=== PATIENT | female | born 1935 | race Caucasian/White ===

== ENCOUNTER 2018-05-17 14:30 | Emergency (ER) | payer MEDICARE, BC ==
[2018-05-17 15:44] LABS: #Basophils 0.1 thou/uL (0.0-0.2); #Eosinphils 0.3 thou/uL (0.0-0.7); #Lymphocytes 1.3 thou/uL (1.20-3.40); #Neutrophils 6.4 thou/uL (1.40-6.50); %Basophils 0.6 % (0.0-1.0); %Eosinophils 3.3 % (0.0-10.0); %Lymphocytes 14.7 % (21.0-51.0); %Monocytes 11.2 % (0.0-10.0); %Neutrophils 70.1 % (42.0-75.0); Hemoglobin 12.1 g/dL (12.0-16.0); Mean Corpuscular HGB CONC 33.2 g/dL (32.0-36.0); Mean Corpuscular Hemoglobin 31.5 pg (27.0-31.0); Mean Platelet Volume 7.4 fL (7.4-10.4); Platelet Count 230 thou/uL (130-400); Red Blood Cell (RBC) Count 3.83 mill/uL (4.20-5.40); White Blood Cell (WBC) Count 9.1 thou/uL (4.8-10.8)
[2018-05-17 16:00] LABS: ALT (SGPT) 8 U/L (8-55); AST (SGOT) 14 U/L (5-34); Albumin 3.8 g/dL (3.4-4.8); Alkaline Phosphatase 76 U/L (40-150); Anion Gap 15 mmol/L (10-20); BUN (Urea Nitrogen) 27 mg/dL (9.8-20.1); Bilirubin, Total 0.2 mg/dL (0.2-1.2); Calc. Creatinine Clearance 0 mL/min (70-130); Calcium 9.2 mg/dL (7.8-10.44); Carbon Dioxide 25 mmol/L (23-31); Chloride 100 mmol/L (98-107); Estimated GFR-MDRD 43; Globulin 2.8 g/dL (2.4-3.5); Glucose 168 mg/dL (83-110); Potassium 4.9 mmol/L (3.5-5.1); Protein, Total 6.6 g/dL (6.0-8.3); Sodium 135 mmol/L (136-145)
--- NOTE | 2018-05-17 17:19 | CT ---
CT HEAD NONCONTRAST: 05/17/2018 HISTORY: Syncope. COMPARISON: None available. FINDINGS: There is diminished attenuation of the periventricular white matter, which is nonspecific but likely attributable to chronic small vessel ischemic changes. There is a linear area of diminished attenuat ion seen within the left basal ganglia, compatible with a lacunar infarction, of indeterminate age, b ut likely more remote in origin. There is no evidence of an acute cortical infarction, hemorrhage, m ass effect, or midline shift. Diffuse cerebral volume loss is present. The ventricular system is no rmal in size, shape, and position for the degree of sulcal atrophy. Vascular calcifications are seen in the carotid siphons and involving the distal vertebral arteries. The visualized paranasal sinuses and mastoid air cells are clear. The calvarial structures appear intact. IMPRESSION: 1. No acute intracranial abnormalities demonstrated. 2. Lacunar infarction, left basal ganglia, of which the exact age is indeterminate, but this is prob ably more remote in origin. 3. Chronic small vessel ischemic changes and cerebral volume loss. POS: EVAN
[2018-05-17 18:07] LABS: Bilirubin Negative (Negative); Blood, Urine Negative (Negative); Clarity CLEAR (Clear); Glucose, Urine (Dipstick) Negative (Negative); Leukocyte Negative (Negative); Nitrite Negative (Negative); Protein, Urine (Dipstick) Negative (Neg-Trace); Urobilinogen 0.2 mg/dL (0.2-1.0); pH, Urine 5.5 (5.0-9.0)
== END 2018-05-17 19:30 | disposition home or self-care (01) ==
LOC: ERS 14:30
DX: R42 Dizziness and giddiness (principal); Z86.73 Personal history of transient ischemic attack (TIA), and cerebral infarction without residual deficits; E11.9 Type 2 diabetes mellitus without complications; I10 Essential (primary) hypertension; F32.9 Major depressive disorder, single episode, unspecified
CPT/HCPCS: 36415; 51701; 70450; 80053; 81003; 84484; 85025; 93005; 96360; A4353

== ENCOUNTER 2018-11-15 21:38 | Inpatient (IN) | payer MEDICARE, BC ==
--- NOTE | 2018-11-15 22:05 | CT ---
EXAM: CT brain without contrast HISTORY: Found down with blood surrounding had an injury to the right eye; minimally responsive COMPARISON: 05/17/2018 TECHNIQUE: Multiple contiguous axial images were obtained and a CT of the brain without contrast. FINDINGS: There are scattered hypodensities in the subcortical and periventricular white matter consi stent with small vessel ischemic disease. Scattered foci of hemorrhage are seen in the bilateral frontal lobes, bilateral parietal lobes, and left occipital lobe. A small amount of right intraventri cular hemorrhage is seen. No hydrocephalus is seen. A tiny left frontal parietal amount of extra-axial blood is seen. The calvarium and overlying soft tissues are unremarkable. The visualized paranasal sinuses and masto id air cells are well aerated. IMPRESSION: Scattered parenchymal contusions, small left subdural hematoma, and intraventricular hemo rrnellige Dr. Melissa notified of the findings at 10:01 PM on 11/15/2018
--- NOTE | 2018-11-15 22:08 | CT ---
EXAM: CT face without contrast HISTORY: Facial trauma. Patient was found down in a corner with altered mental status. COMPARISON: None TECHNIQUE: Multiple contiguous axial images were obtained and a CT of the face without contrast. Sagi ttal and coronal reformats were performed. FINDINGS: No facial fractures are identified. Moderate right periorbital facial soft tissue swelling is seen. The globes and retrobulbar soft tissues are unremarkable. Fluid is seen in the right maxillary sinus. The other visualized paranasal sinuses are well aerated w ithout evidence of opacification. The mastoid air cells are well aerated. Visualized intracranial structures are unremarkable. IMPRESSION: No evidence of facial fracture Dr. Melissa notified of the findings at 10:05 PM on 11/15/2018
--- NOTE | 2018-11-15 22:10 | CT ---
EXAM: CT of the cervical spine without contrast HISTORY: Found down in a corner with altered mental status COMPARISON: None TECHNIQUE: Multiple contiguous axial images were obtained in a CT of the cervical spine without contr ast. Sagittal and coronal reformats were performed. FINDINGS: The vertebral bodies demonstrate normal height and alignment without fracture or subluxatio n. No prevertebral soft tissue swelling is seen. Moderate degenerative changes are present. The posterior facets are well aligned. Normal alignment of the skull base with the cervical spine is seen. The lung apices and cervical soft tissues are unremarkable. IMPRESSION: No evidence of acute osseous abnormality of the cervical spine. Dr. Melissa notified of findings at 10:06 PM on 11/15/2018.
[2018-11-15 22:32] LABS: #Eosinphils 0.1 thou/uL (0.0-0.7); #Lymphocytes 1.3 thou/uL (1.20-3.40); #Monocytes 1.6 thou/uL (0.11-0.59); #Neutrophils 15.9 thou/uL (1.40-6.50); %Basophils 0.1 % (0.0-1.0); %Eosinophils 0.5 % (0.0-10.0); %Lymphocytes 6.8 % (21.0-51.0); %Monocytes 8.5 % (0.0-10.0); %Neutrophils 84.2 % (42.0-75.0); Hemoglobin 13.7 g/dL (12.0-16.0); Mean Corpuscular HGB CONC 32.9 g/dL (32.0-36.0); Mean Corpuscular Hemoglobin 31.4 pg (27.0-31.0); Mean Corpuscular Volume 95.4 fL (78.0-98.0); Platelet Count 215 thou/uL (130-400); RBC Distribution Width 12.6 % (11.5-14.5); Red Blood Cell (RBC) Count 4.37 mill/uL (4.20-5.40); White Blood Cell (WBC) Count 18.9 thou/uL (4.8-10.8)
[2018-11-15 22:35] LABS: INR-International Normal Ratio 1.1; PTT 25.9 SEC (22.9-36.1)
[2018-11-15 22:52] LABS: ALT (SGPT) 17 U/L (8-55); AST (SGOT) 18 U/L (5-34); Albumin 4.3 g/dL (3.4-4.8); Alkaline Phosphatase 108 U/L (40-150); Anion Gap 17 mmol/L (10-20); BUN (Urea Nitrogen) 18 mg/dL (9.8-20.1); Bilirubin, Total 0.5 mg/dL (0.2-1.2); Calc. Creatinine Clearance 0 mL/min (70-130); Calcium 8.8 mg/dL (7.8-10.44); Carbon Dioxide 23 mmol/L (23-31); Chloride 100 mmol/L (98-107); Estimated GFR-MDRD 65; Globulin 2.5 g/dL (2.4-3.5); Glucose 140 mg/dL (83-110); Potassium 3.5 mmol/L (3.5-5.1); Protein, Total 6.8 g/dL (6.0-8.3); Sodium 136 mmol/L (136-145)
[2018-11-15] MEDS ORDERED: Acetaminophen 1,000 MG in Premix Bag 1 BAG IVPB SCH (23:45)
[2018-11-16] MEDS ORDERED: Ondansetron PF 4 MG/2 ML Vial ONE
[2018-11-16] MEDS ORDERED: Ondansetron ODT 4 MG TAB PO PRN (02:31)
[2018-11-16] MEDS ORDERED: Ondansetron PF 4 MG/2 ML Vial IVP PRN (02:31)
[2018-11-16] MEDS ORDERED: Dextrose 50% Abboject 50 ML SYRINGE SLOW IVP PRN ×2 (02:31)
[2018-11-16] MEDS ORDERED: Acetaminophen 1,000 MG in Premix Bag 1 BAG IVPB PRN (02:31)
[2018-11-16] MEDS ORDERED: Insulin Regular 300 UNITS/3 ML VIAL SC PRN (02:31)
[2018-11-16] MEDS ORDERED: Dextrose 5% in Water 1,000 ML IV PRN (02:31)
[2018-11-16 02:35] VITALS: BMI 19.8
[2018-11-16] MEDS: Sodium Chloride 0.9% 1,000 ML IV SCH ×3 (03:04→22:20)
[2018-11-16 03:13] LABS: Bilirubin Negative (Negative); Blood, Urine Negative (Negative); Clarity CLEAR (Clear); Glucose, Urine (Dipstick) 250 mg/dL (Negative); Leukocyte Negative (Negative); Nitrite Negative (Negative); Protein, Urine (Dipstick) Negative (Neg-Trace); Urobilinogen 0.2 mg/dL (0.2-1.0)
[2018-11-16] MEDS ORDERED: Amiodarone 150 MG, Admixture Fee 1 EACH in Dextrose 5% in Water 100 ML IVPB SCH (03:15)
[2018-11-16 03:16] LABS: Bacteria/HPF None Seen HPF (None Seen); Hyaline Casts/LPF 0-3 HYALINE CAST LPF (0-3 Hyaline); Squamous Epithelial None Seen HPF (0-3); WBC/HPF None Seen HPF (0-3)
[2018-11-16] MEDS: Amiodarone 450 MG, Admixture Fee 1 EACH in Dextrose 5% in Water 250 ML IVPB SCH ×2 (03:33→12:33)
--- NOTE | 2018-11-16 05:13 | HP ---
REQUESTING PHYSICIAN: Dr. Melissa. ATTENDING SURGEON: Dr. Umanzor. HISTORY OF PRESENT ILLNESS: The patient is an 83-year-old woman who resides in an [facility] Facility, who was found in her room lying on the floor with a bruise to her right eye and a small laceration. The patient was brought to the emergency department. En route, the patient was noted to have a [place] Coma Scale of 9. There was no documentation as to how this number was arrived at. Reportedly had a change in mentation as far as following commands while en route. The patient was last seen several hours early "normal." The patient was brought to the emergency department where she underwent evaluation and examination and was noted to have scattered parenchymal contusions and small left subdural hematoma and intraventricular hemorrhage. At which time, we were asked to evaluate the patient for admission and obtain neurosurgical consultations. Information is gathered from vague EMS report and medical records that were sent with the patient. ALLERGIES: ATORVASTATIN, LORAZEPAM, PREDNISONE, TRAMADOL, TRAZODONE. CURRENT MEDICATIONS: 1. [place] Thyroid. 2. Aspirin. 3. Celebrex. 4. Citalopram. 5. Diphenoxylate-atropine. 6. Keflex. 7. Lidocaine patch. PAST MEDICAL HISTORY: CVA, TIA, dementia, irritable bowel syndrome, diabetes, hypertension, and depression. PAST SURGICAL HISTORY: None reported. SOCIAL HISTORY: The patient lives in an Alzheimer Facility. There is no reported history of drug, alcohol, or tobacco use. REVIEW OF SYSTEMS: A 10-point review of systems is negative as otherwise stated. PHYSICAL EXAMINATION: VITAL SIGNS: Blood pressure 158/78, heart rate 114, respirations 21, oxygen saturation 94% on room air. GENERAL: The patient is lying in the ER bed. She appears to be awake. The patient's [place] Coma Scale is E 4, V 2, M 5; score is 11. HEENT: Head is normocephalic and atraumatic. Eyes, right eye has moderate amount of periorbital and eyelid ecchymosis. There is a small superficial laceration noted above the right eye. Pupils appear reactive, however the patient will not follow commands to check extraocular motion. Nose is atraumatic without discharge. Ears are atraumatic without discharge. Oropharynx clear. NECK: Immobilized in a pre-hospital C-collar and this will be exchanged for an [place] collar. Trachea is midline. No JVD. CHEST: Clear to auscultation with moderate inspiration and expiration. Again, the patient is not able to follow commands for a deep breath. HEART: Regular rhythm at a tachy rate. ABDOMEN: Soft, flat, nontender. PELVIS: Stable. EXTREMITIES: There is a small contusion on the right elbow. Otherwise, the patient is moving all 4 extremities. Capillary refill less than 3 seconds. Pulses are 2+ in all 4 extremities. BACK: By report is atraumatic and nontender. LABORATORY FINDINGS: White blood cell count 18.9, hemoglobin 13.7, hematocrit 41.7, platelets 215. Sodium 136, potassium 3.5, chloride 100, CO2 of 23, BUN 18, creatinine 0.83, glucose 140. LFTs are unremarkable. Lactic acid 1.6. PT 14, INR 1.1, PTT 26. RADIOGRAPHIC REPORTS: CT of the brain without contrast shows scattered parenchymal contusions, small left subdural hematoma, and intraventricular hemorrhage. CT of the facial bones without contrast shows no evidence of facial fracture. CT of the C-spine without contrast shows no evidence of acute osseous abnormality of the cervical spine. ASSESSMENT: 1. Status post unwitnessed fall. 2. Scattered parenchymal subdural hematoma. 3. Contusion and periorbital ecchymoses to right eye. 4. History of cerebrovascular accident and transient ischemic attacks. PLAN: Plan will be to admit the patient to the [facility] for serial exams and repeat head CT in the morning. Discussed with attending the evaluation, examination, and laboratory radiographic findings. The patient will also have pain control, pulmonary toilet, gastritis, and mechanical VTE prophylaxis. Job ID: [id number]
[2018-11-16 05:15] LABS: #Lymphocytes 0.7 thou/uL (1.20-3.40); #Neutrophils 13.1 thou/uL (1.40-6.50); %Basophils 0.1 % (0.0-1.0); %Eosinophils 0.1 % (0.0-10.0); %Lymphocytes 4.6 % (21.0-51.0); %Monocytes 6.5 % (0.0-10.0); %Neutrophils 88.8 % (42.0-75.0); Hemoglobin 12.8 g/dL (12.0-16.0); Mean Corpuscular HGB CONC 33.4 g/dL (32.0-36.0); Mean Corpuscular Hemoglobin 31.7 pg (27.0-31.0); Mean Platelet Volume 7.8 fL (7.4-10.4); Platelet Count 214 thou/uL (130-400); RBC Distribution Width 12.6 % (11.5-14.5); Red Blood Cell (RBC) Count 4.03 mill/uL (4.20-5.40); White Blood Cell (WBC) Count 14.7 thou/uL (4.8-10.8)
[2018-11-16 05:35] LABS: Anion Gap 15 mmol/L (10-20); BUN (Urea Nitrogen) 15 mg/dL (9.8-20.1); Calc. Creatinine Clearance 42 mL/min (70-130); Calcium 8.4 mg/dL (7.8-10.44); Carbon Dioxide 19 mmol/L (23-31); Chloride 101 mmol/L (98-107); Estimated GFR-MDRD 67; Glucose 173 mg/dL (83-110); Potassium 3.7 mmol/L (3.5-5.1); Sodium 131 mmol/L (136-145)
--- NOTE | 2018-11-16 07:33 | CT ---
CT BRAIN WITHOUT CONTRAST: Date: 11/16/18 INDICATION: History of intracranial hemorrhage; follow-up examination. COMPARISON: Prior examination of the brain dated 11/15/18 at 2157 hours. FINDINGS: The moderate chronic small vessel white matter ischemic change is stable. The mild generalized cerebr al atrophy is similar appearing. Layered hemorrhage within the posterior horns of the lateral ventric les are stable. No midline shift is evident. Small foci of parenchymal contusions involving the anter ior frontal lobes are relatively stable. Scattered areas of subarachnoid hemorrhage, although redistr ibuted on the examination, is largely stable. The small subdural hematoma adjacent to the anterior le ft aspect of the falx is stable in size measuring 1.9 mm. Soft tissue swelling surrounding the right periorbital region is stable. The air fluid level within the right sphenoid and right maxillary sinus are stable. Mastoid air cells are clear. The skull is intact. Basilar cisterns remain patent. IMPRESSION: 1. Stable intraparenchymal contusions involving the anterior frontal lobes. 2. Slightly altered redistribution of the subarachnoid hemorrhage, but generally stable from the tg or exam. There is layered intraventricular hemorrhage within the posterior horns of the lateral ventr icles. 3. Small subdural hematoma seen adjacent to the left aspect of the anterior falx is stable. 4. Stable chronic small vessel white matter ischemic change and generalized cerebral and cerebellar atrophy. 5. Stable sphenoid and right maxillary sinus air fluid levels. POS: KLARISSA
--- NOTE | 2018-11-16 07:38 | CON ---
DATE OF CONSULTATION: SERVICE: Neurosurgical Service. HISTORY OF PRESENT ILLNESS: Ms. Belle is an 83-year-old woman who was brought to [facility] via EMS transport from [facility] after unwitnessed fall and the patient was found in her room in the corner on the floor with noted abrasions and hematoma to the face. This prompted calling emergency services for evaluation. In the emergency department, CT scan was performed that had revealed a large right facial hematoma with associated intracranial pathology including right frontal contusion with scattered smaller parenchymal contusions in bilateral hemispheres. There is some left-sided subarachnoid hemorrhage in the frontal and temporal lobe as well as scant subdural hematoma along the left frontotemporal convexity. On examination for me at bedside, the patient will not open her eyes. She does not follow specific commands. She does localize briskly due to the pain. Pupils are equally round and reactive to light. Thus, she fights a great deal to keep them closed. She moves all 4 extremities purposefully and spontaneously, just not to command. She does not speak or open her mouth at any time and really makes noise other than unlabored normal respirations. The patient has a small abrasion to the right cheek with associated large hematoma. No other obvious injuries. There is right occipital scalp laceration as well. From Neurosurgery perspective, this represents nonoperative management and the intracranial hemorrhages are of any significant size to warrant intervention. She also has significant cortical atrophy and space that is there is even some substantial evolution of her hemorrhages that likely represent significantly compressive lesion, though I do not anticipate this being the case given again the relatively small size of the hemorrhages. She is not reported to be on any type of blood thinning medications and as such, we will not recommended any reversal at this time. I am concerned about her either unwillingness or inability to cooperate with neurologic examination at bedside given recent notes from her primary care physician's office access through EMR dating even back as early of September of this year, reports patient ambulatory, interactive albeit somewhat demented. This is obviously a derangement from that particular baseline here today in the emergency department. Recommendation would be for at least IMCU level of care with neuro checks q.[address] scan in the morning around 6 a.m. Again, no surgical intervention is recommended from Neurosurgery standpoint. We will follow in the morning to direct final recommendations. Job ID: [id number]
[2018-11-16] MEDS: hydrALAZINE 20 MG/ML VIAL SLOW IVP PRN (14:31)
--- NOTE | 2018-11-16 15:34 | PRG ---
DATE OF SERVICE: 11/16/2018 SUBJECTIVE: This is an 83-year-old lady, who resides in an Alzheimer's facility , who was found in her room lying on the floor with a bruise to her right eye and small laceration. The patient is currently in the IMCU. The patient attempts to open eyes to voice at this time. The patient's right eye is swollen with ecchymosis and the patient unable to open the eye due to the swelling. The patient attempts to open left eye, but does not completely open it. The patient moves all extremities. The patient does not follow any other commands. The patient's GCS E3, V1, M5. The The patient remains in a C-collar at this time. OBJECTIVE: VITAL SIGNS: Blood pressure 126/70, heart rate 89, respirations are 19, and SpO2 of 97% on room air. GENERAL: Elderly female, lying in IMCU, no acute distress, the patient appears to be awake and holding onto C-collar. Tiarra comma scale is E3, V1, M5, patient nonverbal. HEENT: Remains in Essie collar. Trachea midline, no JVD, ecchymosis to right eye, the patient squints when you attempt to open the left eye. CHEST: Respirations are even and nonlabored. No distress. HEART: Regular rate, regular rhythm. No pedal edema. ABDOMEN: Soft, flat, and nontender. EXTREMITIES: Small contusion, right elbow. Moves all extremities. Distal pulses 2+. LABORATORY DATA: WBC 14.7, RBC 4.03, hemoglobin 12.8, hematocrit 38.3, and platelets are 214. Sodium 131, potassium 3.7, chloride 101, carbon dioxide 19, BUN 15, creatinine 0.81, estimated GFR 67, glucose 173. DIAGNOSTIC DATA: Repeat brain CT, stable intraparenchymal contusions involving the anterior fontanelle lobes. Slightly altered distribution of the subarachnoid hemorrhage, but generally stable from the prior exam. There is a layer of intraventricular hemorrhage within the posterior horns of the lateral ventricles. Small subdural hematoma seen adjacent to the left aspect of the anterior fossa is stable chronic small-vessel with white matter ischemic change and generalized cerebral and cerebellar atrophy. Stable sphenoid and right maxillary sinus air fluid levels. IMPRESSION: 1. Status post unwitnessed fall. 2. Scattered parenchymal subdural hematoma. 3. Contusion and periorbital ecchymosis to right eye. 4. History of cerebrovascular accident and transient ischemic attacks. 5. Hyponatremia. PLAN: Continue supportive care. Continue serial neuro checks. We will ask Speech Therapy to see the patient, as the patient is altered, her baseline per family is she is able to have a full conversation with a history of dementia and Alzheimer. Continue mechanical VTE prophylaxis. Place on sodium tablets and Gatorade if passes swallow study. Neurosurgery still recommends nonoperative based on repeat head CT. We will keep the patient on amiodarone drip. The plan was discussed with the attending physician, who agrees. Job ID: [id number] MTDD
[2018-11-16] MEDS ORDERED: Prevnar 13-Val Conj/PF 0.5 ML SYRINGE IM ONE (21:00)
[2018-11-17] MEDS: Amiodarone 450 MG, Admixture Fee 1 EACH in Dextrose 5% in Water 250 ML IVPB SCH ×2 (03:29→19:17)
[2018-11-17] MEDS: hydrALAZINE 20 MG/ML VIAL SLOW IVP PRN ×2 (04:31→16:29)
[2018-11-17 07:06] LABS: Anion Gap 12 mmol/L (10-20); BUN (Urea Nitrogen) 8 mg/dL (9.8-20.1); Calc. Creatinine Clearance 54 mL/min (70-130); Calcium 8.3 mg/dL (7.8-10.44); Carbon Dioxide 21 mmol/L (23-31); Chloride 100 mmol/L (98-107); Estimated GFR-MDRD 90; Glucose 127 mg/dL (83-110); Magnesium 1.5 mg/dL (1.6-2.6); Phosphorus 2.2 mg/dL (2.3-4.7); Potassium 3.2 mmol/L (3.5-5.1); Sodium 130 mmol/L (136-145)
--- NOTE | 2018-11-17 07:36 | PRG ---
DATE OF SERVICE: 11/16/2018 Ms. Belle is an 83-year-old female who was transferred from her assisted living facility to the ER for an unwitnessed fall. She had a CT scan upon presentation and a subsequent one several hours later which showed stability in the intracerebral contusions that she sustained as part of her fall. Her injuries are nonoperative in nature. I reviewed the note as dictated by Mahesh Bernstein and agree with his assessment. The plan will be ongoing nonsurgical management. Job ID: [id number]
[2018-11-17] MEDS: Sodium Chloride 0.9% 1,000 ML IV SCH ×2 (08:20→18:02)
--- NOTE | 2018-11-17 09:32 | PRG ---
DATE OF SERVICE: 11/17/2018 I met with Ms. Belle today as well as her son in her IMCU room. Today, she is more responsive than she was yesterday. She does interact with her son per the son. I reviewed with him her diagnosis and her imaging as it relates to the brain. She has intercerebral contusions. These are nonoperative in nature. She will have postconcussive symptoms on top of her baseline dementia that her son defines as [id number] in nature. This will likely protract her recovery. There are no plans for neurosurgical intervention. Her collar can be removed. She can be moved to the floor once the Trauma Service deems that safe to do so. Job ID: [id number]
[2018-11-17] MEDS ORDERED: Magnesium 2 GM/50 ML 2 GM in Premix Bag 1 BAG IVPB SCH (09:45)
[2018-11-17] MEDS ORDERED: Potassium Phosphate 15 MMOL in Sodium Chloride 0.9% 250 ML 250 ML IVPB SCH (09:45)
--- NOTE | 2018-11-17 21:12 | PRG ---
DATE OF SERVICE: 11/17/2018 SUBJECTIVE: Ms. Belle is an 83-year-old woman with history of senile dementia of Alzheimer's type, who suffered a traumatic brain injury following a ground level fall. This morning, she is more alert. Her adult son is at bedside. The patient opens eyes to voice. She did not follow commands. She does however move all extremities. [place] Coma Scale this morning is E3, M5, V3. I attempted a bedside swallow. The patient did not open her mouth when offered ice chips. However, when the ice chip melted on the lips, she was able to swallow without coughing. OBJECTIVE: VITAL SIGNS: Today include blood pressure 154/79, pulse 78, respiratory rate is 20, temperature is 97.6 degrees Fahrenheit, oxygen saturation is 99% on 2 L by nasal cannula oxygen. HEENT: Pupils are equal, round, and reactive to light bilaterally. HEART: Reveals regular rate and rhythm. No murmurs or gallops auscultated. LUNGS: Clear to auscultation bilaterally. Breathing, regular and nonlabored. ABDOMEN: Soft, nontender, and nondistended. EXTREMITIES: Reveal 2+ radial and pedal pulses bilaterally. No ankle edema is present. NEUROLOGIC: Reveals no focal deficits present. LABORATORY FINDINGS: Include metabolic profile; sodium 130, potassium 3.2, chloride is 100, bicarb is 21, BUN is 8, creatinine is 0.63, glucose 127, magnesium is 1.5, phosphorus is 2.2. IMPRESSION: 1. Post injury day #2, status post ground level fall. 2. 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 3. Acute hyponatremia. 4. Acute hypomagnesemia. 5. Acute hypophosphatemia. 6. Acute hypokalemia. PLAN: 1. Correct abnormal electrolytes. 2. We will decrease free water intake. 3. Increase activity per Physical and Occupational Therapy. We will ask Speech and Language pathologist to evaluate the patient for cognition, swallow, and speech. 4. Above findings and plan discussed with the patient's son at bedside. 5. We will ask case operator to begin discharge planning, back to the [facility] facility once the patient is neurologically stable. Job ID: [id number]
[2018-11-18] MEDS: hydrALAZINE 20 MG/ML VIAL SLOW IVP PRN (00:17)
[2018-11-18] MEDS: Sodium Chloride 0.9% 1,000 ML IV SCH (04:07)
[2018-11-18 08:01] LABS: #Eosinphils 0.3 thou/uL (0.0-0.7); #Monocytes 1.2 thou/uL (0.11-0.59); #Neutrophils 10.6 thou/uL (1.40-6.50); %Basophils 0.2 % (0.0-1.0); %Eosinophils 2.3 % (0.0-10.0); %Lymphocytes 7.9 % (21.0-51.0); %Monocytes 8.9 % (0.0-10.0); %Neutrophils 80.6 % (42.0-75.0); Hemoglobin 12.6 g/dL (12.0-16.0); Mean Corpuscular HGB CONC 32.7 g/dL (32.0-36.0); Mean Corpuscular Hemoglobin 30.8 pg (27.0-31.0); Mean Corpuscular Volume 94.2 fL (78.0-98.0); Mean Platelet Volume 7.8 fL (7.4-10.4); Platelet Count 182 thou/uL (130-400); RBC Distribution Width 12.9 % (11.5-14.5); White Blood Cell (WBC) Count 13.2 thou/uL (4.8-10.8)
[2018-11-18 08:19] LABS: Anion Gap 14 mmol/L (10-20); BUN (Urea Nitrogen) 5 mg/dL (9.8-20.1); Calc. Creatinine Clearance 60 mL/min (70-130); Calcium 8.5 mg/dL (7.8-10.44); Carbon Dioxide 19 mmol/L (23-31); Chloride 101 mmol/L (98-107); Estimated GFR-MDRD Greater than 90; Glucose 117 mg/dL (83-110); Magnesium 1.8 mg/dL (1.6-2.6); Phosphorus 2.2 mg/dL (2.3-4.7); Sodium 131 mmol/L (136-145)
[2018-11-18] MEDS ORDERED: Senokot 8.6 MG TAB PO SCH (08:45)
[2018-11-18] MEDS ORDERED: Metoprolol Tartrate 25 MG TAB PO SCH ×2 (09:00→10:45)
[2018-11-18] MEDS ORDERED: Potassium Phosphate 30 MMOL in Sodium Chloride 0.9% 500 ML IVPB SCH (10:15)
[2018-11-18] MEDS ORDERED: Magnesium 2 GM/50 ML 2 GM in Premix Bag 1 BAG IVPB SCH (10:15)
[2018-11-18] MEDS: Famotidine 20 MG TAB PO SCH ×2 (10:25→20:52)
[2018-11-18] MEDS: Polyethylene Glycol 3350 17 GM Packet PO SCH (10:26)
[2018-11-18] MEDS: Acetaminophen 500 MG TAB PO SCH ×3 (10:29→21:16)
--- NOTE | 2018-11-18 17:28 | PRG ---
DATE OF SERVICE: 11/18/2018 SUBJECTIVE: The patient was seen this morning sitting up in bed with no signs of acute distress, much more alert today than previously, has been n.p.o. due to difficulty with swallowing. She was evaluated yesterday initially by Speech. No acute events overnight. Son at bedside reports that mentation is much improved today from previously. The patient is currently amiodarone drip for new-onset atrial fibrillation, rate is controlled at this time. She has no complaints. Denies nausea, vomiting, or diarrhea. OBJECTIVE: VITAL SIGNS: Temperature 97.0, pulse 88, respirations 15, oxygen saturation 100% on room air, blood pressure 163/70. GENERAL: Well-appearing elderly female, sitting up in bed with no signs of acute distress. PULMONARY: Equal chest rise and fall. Clear breath sounds bilaterally. No signs of acute respiratory distress. CARDIAC: Regular rate and rhythm. No murmurs, gallops, or rubs. GI: Abdomen is soft, nontender, nondistended. EXTREMITIES: 2+ pulses in all extremities. No significant swelling noted. Gross motor and sensation are intact. NEURO: GCS is 14, -1 for verbal, which is much improved from yesterday. DIAGNOSTIC FINDINGS: There are no new diagnostic findings to report. ASSESSMENT: 1. Status post found down in Alzheimer's unit. Subdural hematoma, scattered intraparenchymal hematoma, and subarachnoid hematoma. 2. Right periorbital ecchymosis. 3. New-onset atrial fibrillation, rate controlled at this time. 4. Hyponatremia, improved. 5. History of cerebrovascular accident, transient ischemic attack, dementia, irritable bowel syndrome, diabetes, hypertension, and depression. 6. Acute hypokalemia, hypophosphatemia, and hypomagnesemia. PLAN: The patient's neuro status is much improved. Neurosurgery team reports the patient is safe for transfer to the floor, and as such, she will be moved today. The patient was hypertensive overnight. She does not take any antihypertensives at home. She also is on an amiodarone drip. We will discontinue the amiodarone drip and start the patient on metoprolol 12.5 mg b.i.d. with hold parameters. She is to work with Physical and Occupational Therapy. Speech Language pathology saw the patient and reported she was okay for a diet with modifications that was ordered for the patient as well. We will free water restrict the patient to 1.5 L for hyponatremia. She can have as much Gatorade and juices. She likes free water restriction is only for water. The patient to receive potassium, phosphorus, and magnesium replacements at this time. The patient will likely need to go to a jail portion of her previous facility. The patient was seen and examined by Dr. Boyd and myself this morning during rounds. Job ID: [id number]
[2018-11-18] MEDS: Cephalexin 250 MG CAP PO SCH (20:52)
[2018-11-18] MEDS: Metoprolol Tartrate 25 MG TAB PO SCH (20:53)
[2018-11-19] MEDS: Acetaminophen 500 MG TAB PO SCH ×4 (04:48→21:17)
[2018-11-19 05:05] LABS: Anion Gap 13 mmol/L (10-20); BUN (Urea Nitrogen) 10 mg/dL (9.8-20.1); Calc. Creatinine Clearance 50 mL/min (70-130); Carbon Dioxide 23 mmol/L (23-31); Chloride 101 mmol/L (98-107); Estimated GFR-MDRD 78; Glucose 107 mg/dL (83-110); Magnesium 2.2 mg/dL (1.6-2.6); Potassium 3.1 mmol/L (3.5-5.1); Sodium 134 mmol/L (136-145)
[2018-11-19] MEDS ORDERED: Potassium Chloride 20 MEQ/100 ML PREMIX BAG IVPB SCH (07:15)
[2018-11-19] MEDS: Citalopram 20 MG TAB PO SCH (08:26)
[2018-11-19] MEDS: Cephalexin 250 MG CAP PO SCH ×2 (08:26→21:17)
[2018-11-19] MEDS: Thyroid 30 MG TAB PO SCH (08:27)
[2018-11-19] MEDS: Famotidine 20 MG TAB PO SCH ×2 (08:27→21:18)
[2018-11-19] MEDS: Polyethylene Glycol 3350 17 GM Packet PO SCH (08:28)
[2018-11-19] MEDS: Metoprolol Tartrate 25 MG TAB PO SCH ×2 (08:29→21:18)
[2018-11-19] MEDS ORDERED: Lisinopril 10 MG TAB PO SCH (10:15)
[2018-11-19] MEDS: Lisinopril 10 MG TAB PO SCH (12:00)
--- NOTE | 2018-11-19 12:10 | PRG ---
DATE OF SERVICE: 11/19/2018 SUBJECTIVE: The patient was seen this morning, sitting up in bed with no signs of acute distress. She had no acute events overnight. However, continues to be hypertensive after starting metoprolol yesterday. Tachycardia has resolved and the patient's heart rate has been between 55 and 72 today. She did eat a pretty good amount of her breakfast, however, Ensure was added to her diet today as well. She does not have any home antihypertensive medications. Mentation is improved since her fall, however, still waxes and wanes. OBJECTIVE: VITAL SIGNS: Temperature 97.9, pulse 70, respirations are 12, oxygen saturation 96% on room air, and blood pressure 189/73. GENERAL: Well-appearing elderly female, sitting up in bed with no signs of acute distress. CARDIAC: Regular rate and rhythm. No murmurs, gallops, or rubs. PULMONARY: Equal chest rise and fall. Clear breath sounds bilaterally. No signs of acute respiratory distress. ABDOMEN: Soft, nontender, and nondistended. EXTREMITIES: 2+ pulses in all extremities. No significant swelling noted. Gross motor sensation is intact. NEUROLOGIC: GCS is 14, -1 for verbal, otherwise follows commands. Pupils are equal, round, and reactive to light bilaterally. LABORATORY FINDINGS: Sodium 134, potassium 3.1, chloride 101, carbon dioxide 23, BUN 10, creatinine 0.71, glucose 102, phos 4.0, and magnesium 2.2. DIAGNOSTIC FINDINGS: There are no new diagnostic findings to report. ASSESSMENT: 1. Status post found down, suspected mechanical fall. 2. Right periorbital ecchymosis. 3. Subdural scattered intraparenchymal hemorrhages and subarachnoid hemorrhages. 4. New onset atrial fibrillation. 5. Hyponatremia, improved. 6. Hypokalemia. 7. History of cerebrovascular accident, transient ischemic attack, dementia, irritable bowel syndrome, diabetes, hypertension, and depression. PLAN: The patient will continue to work with Physical and Occupational Therapy today. She did work with Speech Language pathology and was determined that she can have a diet which is mechanical soft extra gravy with thin liquids. She is also free water restricted for her hyponatremia, which is improving. We will give her additional potassium today. We will also give Glucerna. She is pending placement in a assisted facility. The patient continues to be hypertensive after starting metoprolol, so we will start lisinopril 10 today and titrate up as needed. The patient was seen and examined by Dr. Boyd and myself this morning during rounds. Job ID: [id number]
[2018-11-20] MEDS: Acetaminophen 500 MG TAB PO SCH ×4 (05:10→21:21)
[2018-11-20 05:20] LABS: Anion Gap 10 mmol/L (10-20); BUN (Urea Nitrogen) 18 mg/dL (9.8-20.1); Calc. Creatinine Clearance 49 mL/min (70-130); Calcium 8.3 mg/dL (7.8-10.44); Carbon Dioxide 26 mmol/L (23-31); Chloride 98 mmol/L (98-107); Estimated GFR-MDRD 76; Glucose 102 mg/dL (83-110); Potassium 3.4 mmol/L (3.5-5.1); Sodium 131 mmol/L (136-145)
[2018-11-20] MEDS ORDERED: Potassium Chloride 20 MEQ TAB PO SCH (08:15)
[2018-11-20] MEDS: Polyethylene Glycol 3350 17 GM Packet PO SCH (08:33)
[2018-11-20] MEDS: Cephalexin 250 MG CAP PO SCH ×2 (08:34→21:21)
[2018-11-20] MEDS: Famotidine 20 MG TAB PO SCH ×2 (08:34→21:21)
[2018-11-20] MEDS: Thyroid 30 MG TAB PO SCH (08:34)
[2018-11-20] MEDS: Citalopram 20 MG TAB PO SCH (08:34)
[2018-11-20] MEDS: Metoprolol Tartrate 25 MG TAB PO SCH ×2 (08:35→21:21)
[2018-11-20] MEDS: Lisinopril 10 MG TAB PO SCH (08:35)
[2018-11-20] MEDS ORDERED: Sodium Chloride 1 GM TAB PO SCH (09:00)
--- NOTE | 2018-11-20 13:16 | PRG ---
DATE OF SERVICE: 11/20/2018 SUBJECTIVE: The patient was seen this morning, sitting up in bed with family at bedside. She was able to nod appropriately to answer questions. No acute events overnight. She is tolerating her diet and has started to drink the Ensures, which she very much enjoys. The patient was started on lisinopril yesterday for blood pressure control. OBJECTIVE: VITAL SIGNS: Temperature 98, pulse 70, respirations 16, oxygen saturation 95% on room air, and blood pressure 140/70. GENERAL: Well-appearing female, sitting up in bed with no signs of acute distress. CARDIAC: Regular rate and rhythm. No murmurs, gallops, or rubs. PULMONARY: Equal chest rise and fall. Clear breath sounds bilaterally. No signs of acute respiratory distress. ABDOMEN: Soft, nontender, and nondistended. EXTREMITIES: 2+ pulses in all extremities. No significant swelling noted. Gross motor and sensation are intact. NEUROLOGIC: GCS is 15 to 14, -1 for verbal. Mentation waxes and wanes, which is unchanged from previously. Pupils equal, round, and reactive to light bilaterally. LABORATORY FINDINGS: Sodium 131, potassium 3.4, chloride 98, carbon dioxide 26, BUN 18, creatinine 0.73, glucose 102, phosphorus 4.0, and magnesium 2.0. DIAGNOSTIC FINDINGS: There are no new diagnostic findings to report. ASSESSMENT: 1. Status post found down, suspected mechanical fall. 2. Right periorbital ecchymosis. 3. Subdural hematomas, some scattered intraparenchymal hematomas, and subarachnoid hematomas. 4. New onset atrial fibrillation, rate controlled. 5. Hypertension, improved. 6. Hyponatremia, worsening today. 7. Hypokalemia, persistent. 8. History of cerebrovascular accident, transient ischemic attack, dementia, irritable bowel syndrome, diabetes, hypertension, and depression. PLAN: We will continue free water restrict the patient and encourage drinking Gatorade. We will start sodium tablets today as well. We will replace the potassium. We will continue to monitor her blood pressure, and we will increase lisinopril as needed. Continue physical and occupational therapy. She is pending placement at a [facility] facility. The patient was seen and examined by Dr. Boyd and myself this morning during rounds. Job ID: [id number]
[2018-11-20] MEDS: Sodium Chloride 1 GM TAB PO SCH (17:06)
--- NOTE | 2018-11-20 22:10 | EKG ---
Test Reason : Blood Pressure : / mmHG Vent. Rate : 156 BPM Atrial Rate : 163 BPM P-R Int : 000 ms QRS Dur : 094 ms QT Int : 312 ms P-R-T Axes : 000 -40 151 degrees QTc Int : 502 ms Supraventricular tachycardia Left axis deviation Left ventricular hypertrophy with repolarization abnormality Abnormal ECG Confirmed by NITIN NASH ([id number]), writer editor TAMARA GONZÁLES ([id number]) on 11/20/2018 10:09:15 PM Referred By: Confirmed By:NITIN NASH
[2018-11-21] MEDS: hydrALAZINE 20 MG/ML VIAL SLOW IVP PRN (00:40)
[2018-11-21 05:25] LABS: Anion Gap 16 mmol/L (10-20); BUN (Urea Nitrogen) 17 mg/dL (9.8-20.1); Calc. Creatinine Clearance 50 mL/min (70-130); Calcium 8.6 mg/dL (7.8-10.44); Carbon Dioxide 24 mmol/L (23-31); Chloride 97 mmol/L (98-107); Estimated GFR-MDRD 78; Glucose 136 mg/dL (83-110); Magnesium 1.9 mg/dL (1.6-2.6); Phosphorus 2.9 mg/dL (2.3-4.7); Potassium 3.6 mmol/L (3.5-5.1); Sodium 133 mmol/L (136-145)
[2018-11-21] MEDS: Acetaminophen 500 MG TAB PO SCH ×4 (06:20→21:08)
[2018-11-21] MEDS ORDERED: Potassium Phosphate 15 MMOL in Sodium Chloride 0.9% 250 ML 250 ML IVPB SCH (08:00)
[2018-11-21] MEDS ORDERED: Lisinopril 20 MG TAB PO SCH (09:00)
[2018-11-21] MEDS: Cephalexin 250 MG CAP PO SCH (10:21)
[2018-11-21] MEDS: Citalopram 20 MG TAB PO SCH (10:22)
[2018-11-21] MEDS: Famotidine 20 MG TAB PO SCH ×2 (10:22→21:07)
[2018-11-21] MEDS: Polyethylene Glycol 3350 17 GM Packet PO SCH (10:23)
[2018-11-21] MEDS: Metoprolol Tartrate 25 MG TAB PO SCH ×2 (10:23→21:07)
[2018-11-21] MEDS: Thyroid 30 MG TAB PO SCH (10:23)
[2018-11-21 17:43] LABS: Lactic Acid 0.8 mmol/L (0.5-2.2)
[2018-11-21 17:51] LABS: Anion Gap 14 mmol/L (10-20); BUN (Urea Nitrogen) 16 mg/dL (9.8-20.1); Calc. Creatinine Clearance 52 mL/min (70-130); Calcium 8.6 mg/dL (7.8-10.44); Carbon Dioxide 24 mmol/L (23-31); Chloride 99 mmol/L (98-107); Estimated GFR-MDRD 81; Glucose 117 mg/dL (83-110); Magnesium 1.9 mg/dL (1.6-2.6); Potassium 3.9 mmol/L (3.5-5.1); Sodium 133 mmol/L (136-145)
[2018-11-21] MEDS: Sodium Chloride 0.9% 1,000 ML IV SCH (18:13)
[2018-11-21 18:15] LABS: Bacteria/HPF 1+ HPF (None Seen); Bilirubin Negative (Negative); Blood, Urine 1+ (Negative); Clarity Extra Turbid (Clear); Glucose, Urine (Dipstick) Normal (Negative); Leukocyte 500 Leu/uL (Negative); Nitrite Negative (Negative); Protein, Urine (Dipstick) 30 mg/dL (Neg-Trace); RBC/HPF Greater than 50 HPF (0-3); Urobilinogen Normal mg/dL (Less than 2); WBC/HPF Greater than 50 HPF (0-3)
[2018-11-21] MEDS: Sodium Chloride 1 GM TAB PO SCH (18:30)
--- NOTE | 2018-11-21 20:15 | RAD ---
RADIOGRAPH CHEST 1 VIEW: DATE: 11/21/2018 HISTORY: 83-year-old female status post acute chest trauma. FINDINGS: There are no consolidations, pulmonary edema, pneumothorax, or cardiomegaly. Nonspecific mild area of hazy small bowel increased density at left lateral base. IMPRESSION: No definite acute cardiopulmonary findings.
[2018-11-21] MEDS ORDERED: Metoprolol Tartrate 5 MG/5 ML VIAL IVP PRN (20:34)
[2018-11-21 20:41] LABS: #Basophils 0.1 thou/uL (0.0-0.2); #Eosinphils 0.1 thou/uL (0.0-0.7); #Lymphocytes 1.1 thou/uL (1.20-3.40); #Monocytes 1.5 thou/uL (0.11-0.59); #Neutrophils 10.2 thou/uL (1.40-6.50); %Basophils 0.4 % (0.0-1.0); %Eosinophils 0.8 % (0.0-10.0); %Lymphocytes 8.3 % (21.0-51.0); %Monocytes 11.2 % (0.0-10.0); %Neutrophils 79.2 % (42.0-75.0); Hemoglobin 12.4 g/dL (12.0-16.0); Mean Corpuscular HGB CONC 32.5 g/dL (32.0-36.0); Mean Corpuscular Hemoglobin 31.1 pg (27.0-31.0); Mean Corpuscular Volume 95.6 fL (78.0-98.0); Mean Platelet Volume 7.7 fL (7.4-10.4); Platelet Count 266 thou/uL (130-400); RBC Distribution Width 13.1 % (11.5-14.5); Red Blood Cell (RBC) Count 3.99 mill/uL (4.20-5.40); White Blood Cell (WBC) Count 12.9 thou/uL (4.8-10.8)
[2018-11-21] MEDS: Lisinopril 20 MG TAB PO SCH (21:08)
--- NOTE | 2018-11-21 21:43 | PRG ---
DATE OF SERVICE: 11/21/2018 SUBJECTIVE: The patient was seen this morning sitting up in bed with no signs of acute distress. The patient was very sleepy this morning and son noted that she was not usually as arousable as today before. The patient was hemodynamically stable and all vital signs looked well. She is not toxic appearing. Upon my initial evaluation, repeat evaluation in the afternoon showed the patient was in some distress and subsequently laboratory studies were completed, which were concerning for urinary tract infection. The patient had not eaten anything all day long and subsequently was likely a little bit dehydrated as well. There is not a decrease in her GCS, however, as she has had traumatic brain injury and there could have been a concern for a head injury, but this is less likely as her GCS is the same. OBJECTIVE: VITAL SIGNS: Temperature 98.3, pulse 70, respirations 16, oxygen saturation 94% on room air, blood pressure 161/67. GENERAL: Elderly female sitting up in bed with some minimal distress. PULMONARY: Equal chest rise and fall. Clear breath sounds bilaterally. No signs of acute respiratory distress. CARDIAC: Regular rate and rhythm. No murmurs, gallops, or rubs. GI: Abdomen is soft, nontender, nondistended. : Dumont in place with hazy urine in canister. EXTREMITIES: 2+ pulses in all extremities. No significant swelling noted. NEUROLOGIC: GCS, eyes 4, verbal 3, motor 6. This is unchanged from previous. Pupils equal, round, reactive to light bilaterally. LABORATORY FINDINGS: White count 12.9, hemoglobin 12.4, hematocrit 38.1, platelets 266. Sodium 133, potassium 3.9, chloride 99, carbon dioxide 24, BUN 16, creatinine 0.69. Lactic acid 0.8. Phosphorus 4.0, magnesium 1.9. DIAGNOSTIC FINDINGS: Chest x-ray completed this evening demonstrates no definite acute cardiopulmonary findings. ASSESSMENT: 1. Status post patient found down. 2. Scattered intraparenchymal hemorrhages and subarachnoid hemorrhage. 3. Right periorbital ecchymosis. 4. New onset atrial fibrillation. 5. Hyponatremia, improved. 6. Urinary tract infection, complicated. 7. History of cerebrovascular accident, transient ischemic attack, dementia, inflammatory bowel disease, diabetes, hypertension, and depression. PLAN: Since the patient's GCS is not declined, we will hold off on completing a CT scan. We will start the patient on IV Cipro x7 days. We will also start her on normal saline at 70 an hour. Potassium and phosphorus were replaced this morning. Original plan this morning was to increase her lisinopril. She has poor blood pressure control. However, she has not been able to take those p.o. medications. We will also add metoprolol 2.5 mg q.6 hours IV p.r.n. for heart rate greater than 120, as the patient has new-onset atrial fibrillation and has not been able to take her oral medications. Continue to monitor urinary output very closely. The patient was discussed with Dr. Boyd this evening. Job ID: [id number]
[2018-11-22 04:41] LABS: #Eosinphils 0.2 thou/uL (0.0-0.7); #Lymphocytes 1.4 thou/uL (1.20-3.40); #Monocytes 1.4 thou/uL (0.11-0.59); #Neutrophils 8.7 thou/uL (1.40-6.50); %Basophils 0.4 % (0.0-1.0); %Eosinophils 1.9 % (0.0-10.0); %Lymphocytes 11.7 % (21.0-51.0); %Monocytes 12.2 % (0.0-10.0); %Neutrophils 73.8 % (42.0-75.0); Hemoglobin 11.5 g/dL (12.0-16.0); Mean Corpuscular HGB CONC 33.4 g/dL (32.0-36.0); Mean Corpuscular Volume 95.8 fL (78.0-98.0); Mean Platelet Volume 7.7 fL (7.4-10.4); Platelet Count 253 thou/uL (130-400); RBC Distribution Width 13.2 % (11.5-14.5); White Blood Cell (WBC) Count 11.8 thou/uL (4.8-10.8)
[2018-11-22] MEDS: Acetaminophen 500 MG TAB PO SCH ×5 (04:54→21:44)
[2018-11-22 05:01] LABS: Band 6 % (5-11); Eosinophils 5 % (0-10); Hemoglobin 11.5 g/dL (12.0-16.0); Lymphocytes 5 % (21-51); MDiff Complete? YES; Mean Corpuscular HGB CONC 33.2 g/dL (32.0-36.0); Mean Corpuscular Hemoglobin 31.8 pg (27.0-31.0); Mean Corpuscular Volume 95.7 fL (78.0-98.0); Mean Platelet Volume 7.8 fL (7.4-10.4); Monocytes 9 % (0-10); Neutrophil 74 % (42-75); Platelet Count 252 thou/uL (130-400); RBC Distribution Width 13.1 % (11.5-14.5); Reactive Lymphocytes 1 % (0-10); Red Blood Cell (RBC) Count 3.62 mill/uL (4.20-5.40); White Blood Cell (WBC) Count 11.6 thou/uL (4.8-10.8)
[2018-11-22 05:03] LABS: Anion Gap 15 mmol/L (10-20); BUN (Urea Nitrogen) 15 mg/dL (9.8-20.1); Calc. Creatinine Clearance 50 mL/min (70-130); Calcium 8.2 mg/dL (7.8-10.44); Carbon Dioxide 23 mmol/L (23-31); Chloride 99 mmol/L (98-107); Estimated GFR-MDRD 77; Glucose 105 mg/dL (83-110); Magnesium 1.9 mg/dL (1.6-2.6); Phosphorus 3.4 mg/dL (2.3-4.7); Potassium 3.5 mmol/L (3.5-5.1); Sodium 133 mmol/L (136-145)
[2018-11-22] MEDS ORDERED: Potassium Phosphate 15 MMOL in Sodium Chloride 0.9% 250 ML 250 ML IVPB SCH (07:45)
[2018-11-22] MEDS: Citalopram 20 MG TAB PO SCH (09:47)
[2018-11-22] MEDS: Famotidine 20 MG TAB PO SCH ×2 (09:48→21:33)
[2018-11-22] MEDS: Thyroid 30 MG TAB PO SCH (09:48)
[2018-11-22] MEDS: Metoprolol Tartrate 25 MG TAB PO SCH ×2 (09:49→21:33)
[2018-11-22] MEDS: Polyethylene Glycol 3350 17 GM Packet PO SCH (09:49)
[2018-11-22] MEDS: Sodium Chloride 0.9% 1,000 ML IV SCH (10:01)
--- NOTE | 2018-11-22 11:59 | PRG ---
DATE OF SERVICE: 11/22/2018 SUBJECTIVE: Ms. Belle is an 83-year-old woman, sustained acute traumatic brain injury following a fall. Overnight, the patient was noted with depressed mental status. Workup included urinalysis, which was suggestive of acute urinary tract infection. The patient was started on antibiotic therapy yesterday. This morning, she is more awake and alert. Her elderly son is at bedside. The patient is interactive, although not talkative. Tiarra Coma Scale this morning is E4, M6, V3. She is able to hold a bottle of Gatorade and drink from a straw without any assistance. OBJECTIVE: VITAL SIGNS: This morning includes blood pressure 149/74, pulse 71, respiratory rate is 18, temperature is 97.8 degrees Fahrenheit, oxygen saturation 96% on room air. HEENT: Pupils are equal, round, reactive to light and accommodation. HEART: Regular rate and rhythm. No murmurs or gallops auscultated. LUNGS: Clear to auscultation bilaterally. Breathing, regular and nonlabored. ABDOMEN: Soft, nontender, and nondistended. NEUROLOGIC: No focal deficits present. LABORATORY FINDINGS: Today includes a CBC with 11,800 white blood cells, hemoglobin and hematocrit are 11.5 and 34.4 respectively, platelet count is 253,000. Metabolic profile; sodium 133, potassium is 3.5, chloride is 99, bicarb is 23, BUN 15, creatinine 0.72, glucose 105, magnesium 1.9, and phosphorus is 3.4. IMPRESSIONS: 1. Post injury day #7, status post fall. 2. Acute traumatic brain injury, stable. 3. Acute urinary tract infection, on antibiotic therapy. PLAN: Increase activity per Physical and Occupational Therapy. Anticipate discharge to care home facility once insurance authorization and bed availability has been secured. Job ID: [id number]
[2018-11-22] MEDS: Sodium Chloride 1 GM TAB PO SCH (17:05)
[2018-11-22] MEDS: Lisinopril 20 MG TAB PO SCH (21:34)
[2018-11-23] MEDS: Acetaminophen 500 MG TAB PO SCH ×4 (04:53→21:57)
[2018-11-23 05:31] LABS: #Basophils 0.1 thou/uL (0.0-0.2); #Eosinphils 0.4 thou/uL (0.0-0.7); #Lymphocytes 1.9 thou/uL (1.20-3.40); #Monocytes 1.3 thou/uL (0.11-0.59); #Neutrophils 7.6 thou/uL (1.40-6.50); %Basophils 0.4 % (0.0-1.0); %Eosinophils 3.3 % (0.0-10.0); %Lymphocytes 17.3 % (21.0-51.0); %Monocytes 11.8 % (0.0-10.0); %Neutrophils 67.2 % (42.0-75.0); Hemoglobin 11.6 g/dL (12.0-16.0); Mean Corpuscular HGB CONC 33.3 g/dL (32.0-36.0); Mean Corpuscular Hemoglobin 31.8 pg (27.0-31.0); Mean Corpuscular Volume 95.5 fL (78.0-98.0); Mean Platelet Volume 7.5 fL (7.4-10.4); Platelet Count 256 thou/uL (130-400); RBC Distribution Width 13.1 % (11.5-14.5); Red Blood Cell (RBC) Count 3.64 mill/uL (4.20-5.40); White Blood Cell (WBC) Count 11.2 thou/uL (4.8-10.8)
[2018-11-23 05:49] LABS: Anion Gap 14 mmol/L (10-20); BUN (Urea Nitrogen) 12 mg/dL (9.8-20.1); Calc. Creatinine Clearance 50 mL/min (70-130); Calcium 8.3 mg/dL (7.8-10.44); Carbon Dioxide 23 mmol/L (23-31); Chloride 95 mmol/L (98-107); Estimated GFR-MDRD 77; Glucose 104 mg/dL (83-110); Magnesium 1.8 mg/dL (1.6-2.6); Phosphorus 3.8 mg/dL (2.3-4.7); Potassium 3.7 mmol/L (3.5-5.1); Sodium 128 mmol/L (136-145)
[2018-11-23] MEDS: Metoprolol Tartrate 25 MG TAB PO SCH ×2 (08:27→21:58)
[2018-11-23] MEDS: Thyroid 30 MG TAB PO SCH (08:27)
[2018-11-23] MEDS: Famotidine 20 MG TAB PO SCH ×2 (08:27→21:57)
[2018-11-23] MEDS: Citalopram 20 MG TAB PO SCH (08:27)
[2018-11-23] MEDS: Polyethylene Glycol 3350 17 GM Packet PO SCH (08:28)
--- NOTE | 2018-11-23 13:20 | PRG ---
DATE OF SERVICE: 11/23/2018 This is Sidney Johnston PA-C dictating a report for Alan Boyd DO. SUBJECTIVE: The patient remains on the surgical floor. She is hospital day #7, status post ground level fall when she sustained acute traumatic brain injury. The patient the day prior to yesterday was noted to have urinary tract infection and was started on IV antibiotics. Today, we will transition those to p.o. antibiotics. This appears to be an uncomplicated UTI. Overnight, the patient had no reported issues. This morning, the son reports that she is more alert and verbal. OBJECTIVE: VITAL SIGNS: Temperature is 98.2, heart rate 80, blood pressure 167/70, respirations 16, and oxygen saturation is 93% on room air. GENERAL: The patient is resting comfortably in bed. She appears in no distress. She is responsive to verbal stimuli, recognizes her son, and appears appropriate. HEENT: Shows a right-sided periorbital ecchymosis that is resolving. Remainder is unremarkable. LUNGS: Clear to auscultation bilaterally. HEART: Regular rate and rhythm. ABDOMEN: Soft, flat, nontender with active bowel sounds. EXTREMITIES: Neurovascularly intact x4. LABORATORY FINDINGS: White blood cell count 11.2, hemoglobin 11.6, hematocrit 34.8, and platelets 256. Sodium 128, potassium 3.7, chloride 95, CO2 of 23, BUN 12, creatinine 0.72, glucose 104, magnesium 1.8, and phosphorus 3.8. ASSESSMENT: 1. Status post ground level fall. 2. Acute traumatic brain injury, stable. 3. Urinary tract infection, on appropriate antibiotic therapy. 4. Hyponatremia. Continue free water restrictions. PLAN: Plan to be to continue physical and occupational therapy plan as above and await detention facility placement. The patient was evaluated this morning with Dr. Boyd. Job ID: [id number]
[2018-11-23] MEDS: Sodium Chloride 1 GM TAB PO SCH (17:25)
[2018-11-23] MEDS: Cipro 250 MG TAB PO SCH (21:00)
[2018-11-23] MEDS: Lisinopril 20 MG TAB PO SCH (21:57)
[2018-11-24] MEDS: Acetaminophen 500 MG TAB PO SCH ×3 (05:15→17:41)
[2018-11-24] MEDS: Cipro 250 MG TAB PO SCH (06:13)
[2018-11-24 07:37] LABS: Anion Gap 12 mmol/L (10-20); BUN (Urea Nitrogen) 12 mg/dL (9.8-20.1); Calc. Creatinine Clearance 54 mL/min (70-130); Calcium 8.2 mg/dL (7.8-10.44); Carbon Dioxide 25 mmol/L (23-31); Chloride 97 mmol/L (98-107); Estimated GFR-MDRD 85; Glucose 123 mg/dL (83-110); Magnesium 1.9 mg/dL (1.6-2.6); Phosphorus 3.4 mg/dL (2.3-4.7); Potassium 3.7 mmol/L (3.5-5.1); Sodium 130 mmol/L (136-145)
[2018-11-24] MEDS: Thyroid 30 MG TAB PO SCH (10:13)
[2018-11-24] MEDS: Polyethylene Glycol 3350 17 GM Packet PO SCH (10:13)
[2018-11-24] MEDS: Famotidine 20 MG TAB PO SCH (10:13)
[2018-11-24] MEDS: Citalopram 20 MG TAB PO SCH (10:14)
[2018-11-24] MEDS: Metoprolol Tartrate 25 MG TAB PO SCH (10:14)
[2018-11-24 12:00] VITALS: TEMP 98.2
--- NOTE | 2018-11-24 13:07 | PRG ---
DATE OF SERVICE: 11/24/2018 This is Sidney Johnston PA-C dictating a report for Alan Boyd DO. SUBJECTIVE: The patient remains on the surgical floor. She is hospital day #8, status post fall when she sustained acute traumatic brain injury. The patient had no issues overnight. This morning, she is tolerating a diet. She states that her pain is controlled. OBJECTIVE: VITAL SIGNS: Temperature is 97.5, heart rate is 67, blood pressure 152/67, respirations 16, oxygen saturation 95% on room air. GENERAL: The patient is sitting comfortably in bed. She is awake, conversant, appropriate. Son agrees that she is at her baseline. HEENT: Unremarkable with the exception of resolving right periorbital ecchymosis. LUNGS: Clear to auscultation bilaterally. HEART: Regular rate and rhythm. ABDOMEN: Soft, flat, nontender with active bowel sounds. EXTREMITIES: Neurovascularly intact x4. LABORATORY DATA: Sodium 130, potassium 3.7, chloride 97, CO2 of 25, BUN 12, creatinine 0.66, glucose 123, magnesium 1.9, phosphorus 3.4. ASSESSMENT: 1. Status post ground level fall. 2. Acute traumatic brain injury, stable, improving. 3. Urinary tract infection, on appropriate antibiotic therapy. 4. Hyponatremia, improving. PLAN: Plan will be to continue free water restrictions and increase her Ensure to three times a day with meals. Continue physical and occupational therapy and await final placement decision. The patient was evaluated this morning with Dr. Boyd. Job ID: [id number]
[2018-11-24 16:33] VITALS: BP 142/64
[2018-11-24] MEDS: Sodium Chloride 1 GM TAB PO SCH (17:41)
== END 2018-11-24 18:00 | DRG 83 ==
LOC: ERS 21:38 → IMCU/EMU 11-16 02:23 → SURG B 11-18 11:56
PROVIDERS: ADMIT Specialist; ATTEND Specialist
DX: S06.5X9A Traumatic subdural hemorrhage with loss of consciousness of unspecified duration, initial encounter (principal); E87.1 Hypo-osmolality and hyponatremia; N39.0 Urinary tract infection, site not specified; S06.6X9A Traumatic subarachnoid hemorrhage with loss of consciousness of unspecified duration, initial encounter; S06.379A Contusion, laceration, and hemorrhage of cerebellum with loss of consciousness of unspecified duration, initial encounter; Z66 Do not resuscitate; W19.XXXA Unspecified fall, initial encounter; Y92.122 Bedroom in nursing home as the place of occurrence of the external cause; F02.80 Dementia in other diseases classified elsewhere, unspecified severity, without behavioral disturbance, psychotic disturbance, mood disturbance, and anxiety; E11.9 Type 2 diabetes mellitus without complications; I10 Essential (primary) hypertension; F32.9 Major depressive disorder, single episode, unspecified; S00.11XA Contusion of right eyelid and periocular area, initial encounter; R40.2422 Glasgow coma scale score 9-12, at arrival to emergency department; G30.9 Alzheimer's disease, unspecified; E86.0 Dehydration; I48.91 Unspecified atrial fibrillation; E83.42 Hypomagnesemia; E83.39 Other disorders of phosphorus metabolism; E87.6 Hypokalemia; Z88.6 Allergy status to analgesic agent; Z88.8 Allergy status to other drugs, medicaments and biological substances; Z79.82 Long term (current) use of aspirin; Z79.899 Other long term (current) drug therapy; Z86.73 Personal history of transient ischemic attack (TIA), and cerebral infarction without residual deficits
CPT/HCPCS: 36415; 36416; 70450; 70486; 71045; 72125; 80048; 80053; 81001; 81003; 81015; 83605; 83735; 84100; 85007; 85025; 85027; 85610; 85730; 87077; 87086; 87186; 93005; 93010; 96365; 96375; G0390; J0131; J0282; J0360; J0744; J1815; J2405; J3475; J3480; J7050; J7070; Q0162